=== PATIENT | male | born 1980 | race Caucasian/White ===

== ENCOUNTER 2022-04-22 13:09 | Day surgery (SDC) | payer OTHER, SELFPAY ==
[2022-04-22] VITALS (10 sets, daily range): BP systolic 116–156; BP diastolic 66–92; PULSE 55–72; RESP 14–16; TEMP 36.4–37; O2SAT 100; BMI 27.6
--- NOTE | 2022-04-22 13:14 | PC.NURSE ---
Report to the Outpatient Waiting Room, entrance under the green pavilion located off [facility], at time __1530 on date _04/22/22 . Planned Procedure Time: __1730 . Time changes happen often and if your time is changed the preop area will call you the afternoon before. - You and your visitor will be asked to self-screen and do not enter if you have any COVID symptoms. - Only one visitor is requested with a max of two and NO children visitors are allowed at this time. - The patient visitor may be requested to leave or wait in car when not with patient due to distancing restrictions. - A mask is optional within the hospital. Patients may have clear liquids (water, carbonated beverages, clear teas, apple juice) until 3 hours prior to surgery with a maximum of 20 ounces. - No food from midnight until time of surgery - Infants may have breast milk until 4 hours before surgery, formula 6 hours prior to surgery. - Children will be allowed to drink immediately following surgery. If applicable, please bring a bottle or sippy cup to assist with drinking. Juice, water, soda, and popsicles are readily available. For infants on formula, please bring formula the day of surgery. Pacifiers are allowed. Take the following medications with a SIP of water the morning of surgery: ___NONE Medications to discontinue per physician NONE Date to take last dose Please no make-up, nail korean, hairspray, perfume, deodorant, or body powder the day of surgery. No jewelry (including any body piercings) or valuables the day of surgery, leave them at home. Please take a shower or bath the night before, or the morning of, surgery with an antibacterial soap. Wear comfortable, loose fitting clothing. Children are encouraged to wear pajamas. - Jewelry must be removed prior to entering the operating room. Rings and piercings that are not removed may be cut off. - The hospital will not accept responsibility for valuables. - Please leave all valuables, including medications, at home the day of surgery. If you are going home after surgery, a licensed bus driver supervisor must drive you home. - NO public transportation without another adult if you receive anesthesia. - We recommend that an adult stay with you for 24 hours following discharge. - We also recommend that you do not drive, make important decision, drink alcoholic beverages, or take any drugs that were not prescribed by your health care provider for at least 24 hours after your discharge time. Follow any additional instructions given to you from your surgeon. If you or anyone in your household have experienced Covid symptoms in the past week, please notify your surgeon or the nurse liaison at the phone number below for possible testing. Telephone instructions given to _PATIENT and asked if any additional questions and then verbalized understanding. Patient advised to call surgeon office or pre surgery nurse liaison [phone] if any additional questions.15
[2022-04-22] MEDS: LACTATED RINGERS 1,000 ML 30 ML IV CONT ×2 (15:45→17:55)
--- NOTE | 2022-04-22 16:11 | P.PNAN_ITS ---
Anes - Initial Pre Proc Eval Procedure: Operation Date: 04/22/22 17:30 Proposed Procedures p Incision and Drainage Aileen Rectal Abscess - Bubba Price MD Date/Time: 04/22/22 16:11 Surgeon: Bubba Price MD Pre Op Diagnosis: aileen rectal abscess Patient Data Age: 41 Gender: M Height: 1.88 m Weight: 97.8 kg Last Vital Signs Temp 37.0 C 04/22/22 15:45 Pulse 62 04/22/22 15:45 Resp 16 04/22/22 15:45 BP 152/66 H 04/22/22 15:45 Pulse Ox 100 04/22/22 15:45 O2 Del Method Room Air 04/22/22 15:45 Allergies Allergy/AdvReac Type Severity Reaction Status Date / Time No Known Allergies Allergy Verified 04/22/22 16:02 Home Medications Medication Instructions Recorded Confirmed Type No Home Medications 11/04/20 04/22/22 History Patient hx anesthesia problems: none Family hx anesthesia problems: none Results Review: All pre-operative results and documents have been reviewed as part of the pre-operative evaluation. [facility] Surgical History Surgical History (Updated 11/04/20 @ 16:08 by Kalli Mohan CMA) History of ankle surgery History of appendectomy Family History Family History (Updated 11/04/20 @ 16:09 by Kalli Mhoan CMA) Mother Breast cancer Father Non-Hodgkin lymphoma Social History Social History Smoking packs per day: 0.25 Smoking cigarettes per day: 5.0 Years smoked: 15 Smoking pack-years: 3.75 Smoking status: Current every day smoker Tobacco type: cigarettes Alcohol intake: current Drinks per week: 3 Living arrangements: other Spiritual care concerns: No Anes - Eval Final PreProcedure Day of Procedure 04/22/22 16:11 Patient weight: overweight Heart: regular rate and rhythm Lungs: clear to auscultation Airway: Mallampati scale class II Neurological: alert and oriented Last oral intake: >/= 8 hours (ate breakfast sandwich at 0530 this morning) ASA classification: II Emergent: yes Anesthetic plan: proceed Anesthesia type and monitoring: general ETT and standard monitoring Results Review: All pre-operative results and documents have been reviewed as part of the pre- operative evaluation. Informed Consent: The patient's anesthetic plan and its attendant risks and benefits were discussed with the patient/family/POA. Questions were solicited and answers provided to the satisfaction of the patient/family/POA.
--- NOTE | 2022-04-22 17:00 | WPDHPUPDATE1 ---
History and Physical Update Update Date/Time: 04/22/22 17:00 History and Physical has been reviewed, including an updated exam of the patient. There are NO changes in the patient's condition. Risks, benefits, and alternatives have been discussed and questions answered. Patient agrees to proceed with procedure.
--- NOTE | 2022-04-22 17:02 | PM.IMHP ---
H&P: HPI History of Present Illness Date/Time: 04/22/22 17:02 Chief Complaint: Gluteal pain Narrative: Since last week pain aileen-rectal / gluteal. Started abx. Persistent pain. Aspiration today with purulence. Review of Systems Review of Systems: All systems reviewed & are unremarkable except as noted in HPI and below [facility] Surgical History Surgical History (Updated 11/04/20 @ 16:08 by Kalli Mohan CMA) History of ankle surgery History of appendectomy Family History Family History (Updated 11/04/20 @ 16:09 by Kalli Mohan CMA) Mother Breast cancer Father Non-Hodgkin lymphoma Social History Social History Smoking packs per day: 0.25 Smoking cigarettes per day: 5.0 Years smoked: 15 Smoking pack-years: 3.75 Smoking status: Current every day smoker Tobacco type: cigarettes Alcohol intake: current Drinks per week: 3 Living arrangements: other Spiritual care concerns: No Meds Home Medications and Allergies Home Medications Medication Instructions Recorded Confirmed Type No Home Medications 11/04/20 04/22/22 History Allergies Allergy/AdvReac Type Severity Reaction Status Date / Time No Known Allergies Allergy Verified 04/22/22 16:02 Vital Signs Vital Signs - 24 hr 04/22/22 15:45 Temperature 37.0 C Pulse Rate 62 Respiratory Rate 16 Blood Pressure 152/66 H Pulse Oximetry 100 Oxygen Delivery Room Air Exam Narrative: Perirectal mass / firmness Const: General: cooperative HENMT: Head: normal to inspection Face/Nose/Sinus: Normal external nose present Eyes: General: appearance normal, both eyes and all related structures Neck: Neck: normal visual inspection Chest: Chest palpation & inspection: normal inspection of the chest Resp: Effort & Inspection: normal respiratory effort GI: Inspection: normal to inspection Skin: General skin exam: normal color and no rashes or lesions noted Neuro: General: oriented to person, oriented to place and oriented to time Extrem: General: normal to inspection Psych: Appearance: grossly normal Assessment and Plan Assessment and plan (1) Perirectal abscess: Code(s): K61.1 - Rectal abscess Status: Acute Assessment and Plan: He would like to proceed with I&D Risks, benefits, alternatives were discussed in extensive detail. I want to be very realistic about the risks involved as well as expectations. Reviewed consent in detail. Discussed aftercare and what to monitor for. Made sure I answered all questions answered to satisfaction and consent obtained.
[2022-04-22] MEDS: BUPIVACAINE HCL 0.25% PF 30 ML VIAL 10 ML INFILTRATE (17:25)
--- NOTE | 2022-04-22 17:42 | P.OP_ITS ---
Procedure Note - Detailed Date of Procedure 04/22/22 Pre-op Diagnosis aileen rectal abscess Post-op Diagnosis Same Procedure Performed I&D Perirectal abcess Surgeon Bubba Price MD Anesthesia General Findings Purulence identified at I&D site. Also noted purulent drainage from rectum. Iodoform packing placed. Description of Procedure Preoperatively the risks, benefits, alternatives were discussed in extensive detail. I want him to be very realistic about the risks involved as well as expectations. Made sure I answered all of his questions to his satisfaction. Consent was obtained. He was taken to the operating room. Anesthesia provided by anesthesiology. Placed prone in the operating room table in a alejandra-knife position. He was prepped and draped in a standard sterile fashion. Surgical time-out was taken. 20 cc of 50/50 2% lidocaine and 0.25% Marcaine with epinephrine was used anesthetize locally. The area of greatest fluctuance was identified a 15 blade used to make an incision. I continued dissection until purulence was identifi ed. All of entering the abscess cavity I did note purulent drainage coming from the rectum. I made sure opened the space. I copiously irrigated with saline solution. Verified strict hemostasis. This was packed with half-inch iodoform packing. Dressings were placed. He was woken taken to the PACU without difficulty. All instrument sponge counts were correct at the end of the case. Estimated Blood Loss 2 Drains No Packing Yes (1/2 Iodoform) Pathology Yes (Cultures sent. On batrim at the time.) Complications No immediate complications Condition Stable Disposition PACU
== END 2022-04-22 18:53 | disposition home or self-care (01) ==
PROVIDERS: Visit Provider Surgery Plastic and Reconstructive Surgery
PROC: (CPT 46040; principal; 2022-04-22 17:30)
DX: K61.1 Rectal abscess (principal); F17.210 Nicotine dependence, cigarettes, uncomplicated
CPT/HCPCS: 46040; 87070; 87075; 87077; 87186; 87205; J0330; J0690; J1100; J2405; J2704; J3010; J7120

== ENCOUNTER 2022-05-24 13:04 | Outpatient (NON) | payer OTHER, SELFPAY | END 2022-05-24 13:05 | disposition home or self-care (01) | PROVIDERS: Visit Provider Nurse Practitioner | DX: D49.2 Neoplasm of unspecified behavior of bone, soft tissue, and skin (principal) | CPT/HCPCS: 88305 ==

== ENCOUNTER 2022-07-02 02:33 | Day surgery (SDC) | payer OTHER, SELFPAY ==
[2022-06-24 11:30] VITALS: BMI 27.6
--- NOTE | 2022-06-24 11:30 | PC.NURSE ---
Report to the Outpatient Waiting Room, entrance under the green pavilion located off [facility], at time 0800 on date 07/02/22. Planned Procedure Time: 1000. Time changes happen often and if your time is changed the preop area will call you the afternoon before. - You and your visitor will be asked to self-screen and do not enter if you have any COVID symptoms. - Only one visitor is requested with a max of two and NO children visitors are allowed at this time. - The patient visitor may be requested to leave or wait in car when not with patient due to distancing restrictions. - A mask is optional within the hospital at this time. Patients may have clear liquids (water, carbonated beverages, clear teas, apple juice) until 3 hours prior to surgery with a maximum of 20 ounces. - No food from midnight until time of surgery Take the following medications with a SIP of water the morning of surgery: N/A DO NOT STOP ANY OF YOUR OTHER PRESCRIPTION MEDICATIONS PRIOR TO SURGERY EXCEPT THE FOLLOWING Medications to discontinue per physician: N/A Date to take last dose: N/A Please no make-up, nail jamaican, hairspray, perfume, deodorant, or body powder the day of surgery. No jewelry (including any body piercings) or valuables the day of surgery, leave them at home. Please take a shower or bath the night before, or the morning of, surgery with an antibacterial soap. Wear comfortable, loose fitting clothing. - Jewelry must be removed prior to entering the operating room. Rings and piercings that are not removed may be cut off. - The hospital will not accept responsibility for valuables. - Please leave all valuables, including medications, at home the day of surgery. If you are going home after surgery, a licensed spike driver must drive you home. - NO public transportation without another adult if you receive anesthesia. - We recommend that an adult stay with you for 24 hours following discharge. - We also recommend that you do not drive, make important decision, drink alcoholic beverages, or take any drugs that were not prescribed by your health care provider for at least 24 hours after your discharge time. Follow any additional instructions given to you from your surgeon. If you or anyone in your household have experienced Covid symptoms in the past week, please notify your surgeon or the nurse liaison at the phone number below for possible testing. Telephone instructions given to PT - TINA RYAN and asked if any additional questions and then verbalized understanding. Patient advised to call surgeon office or pre surgery nurse liaison [phone] if any additional questions.
[2022-07-02] VITALS (8 sets, daily range): BP systolic 97–135; BP diastolic 67–88; PULSE 47–62; RESP 13–20; TEMP 36.7–37.3; O2SAT 98–100
--- NOTE | 2022-07-02 12:37 | WPDHPUPDATE1 ---
History and Physical Update Update Date/Time: 07/02/22 12:37 History and Physical has been reviewed, including an updated exam of the patient. There are NO changes in the patient's condition. Risks, benefits, and alternatives have been discussed and questions answered. Patient agrees to proceed with procedure.
[2022-07-02] MEDS: LACTATED RINGERS 1,000 ML 30 ML IV CONT (13:00)
[2022-07-02] MEDS: KETOROLAC 15 MG/ML VIAL (*BKC) IV PUSH (13:15)
[2022-07-02] MEDS: ACETAMINOPHEN 500 MG TABLET 1000 MG PO (13:15)
--- NOTE | 2022-07-02 13:22 | P.PNAN_ITS ---
Anes - Initial Pre Proc Eval Procedure: Operation Date: 07/02/22 14:00 Proposed Procedures p Rectal Examination Under Anesthesia for Anal Fistulotomy - Francisco Kidd DO Date/Time: 07/02/22 13:22 Surgeon: Francisco Kidd DO Pre Op Diagnosis: anal fistula Patient Data Age: 41 Gender: M Height: 1.88 m Weight: 96.9 kg Last Vital Signs Temp 99.1 F 07/02/22 12:50 Pulse 60 07/02/22 12:50 Resp 20 07/02/22 12:50 BP 135/78 07/02/22 12:50 Pulse Ox 100 07/02/22 12:50 O2 Del Method Room Air 07/02/22 12:50 Allergies Allergy/AdvReac Type Severity Reaction Status Date / Time No Known Allergies Allergy Verified 07/02/22 13:08 Home Medications Medication Instructions Recorded Confirmed Type No Home Medications 11/04/20 07/02/22 History Patient hx anesthesia problems: none Family hx anesthesia problems: none Results Review: All pre-operative results and documents have been reviewed as part of the pre- operative evaluation. [facility] Surgical History Surgical History History of ankle surgery History of appendectomy Family History Family History Mother Breast cancer Father Non-Hodgkin lymphoma Social History Social History Smoking packs per day: 0.25 Smoking cigarettes per day: 5.0 Years smoked: 15 Smoking pack-years: 3.75 Smoking status: Current every day smoker Tobacco type: cigarettes Alcohol intake: current Drinks per week: 3 Substance use: never Substance use type: does not use Living arrangements: with family Spiritual care concerns: No Anes - Eval Final PreProcedure Day of Procedure 07/02/22 13:22 Patient weight: overweight Heart: regular rate and rhythm Lungs: clear to auscultation Airway: Mallampati scale class II Neurological: alert and oriented Last oral intake: >/= 8 hours ASA classification: II Emergent: no Anesthetic plan: proceed Anesthesia type and monitoring: general LMA and ETT and standard monitoring Results Review: All pre-operative results and documents have been reviewed as part of the pre- operative evaluation. Informed Consent: The patient's anesthetic plan and its attendant risks and benefits were discussed with the patient/family/POA. Questions were solicited and answers provided to the satisfaction of the patient/family/POA.
[2022-07-02] MEDS: ceFAZolin 2 GM/D5W 50 ML 2 GM/50 ML BAG IVPB (13:39)
--- NOTE | 2022-07-02 14:36 | W.PM.PROC2 ---
Procedure Note - Detailed Date of Procedure 07/02/22 Pre-op Diagnosis anal fistula Post-op Diagnosis Same Procedure Performed 1. rectal exam under anesthesia 2. Placement of draining seton Surgeon Francisco Kidd, DO Anesthesia General and Local ( Exparel) Indications This is a 41-year-old man who presented with a prior history of perirectal abscess that was incised and drained 2 months ago. He never completely healed at the I and D site and would periodically have some purulence drainage. He was found to have a right anterior wound in the perianal skin that appeared to be consistent with an anal fistula. Discussions were made with the patient about treatment options and decision was made to proceed with rectal exam under anesthesia with possible anal fistulotomy. Findings Rectal exam under anesthesia was performed. The patient had a right anterior perianal wound that had some surrounding induration extending towards the midline perineum. Lacrimal probes were used to probe the wound and identify where the internal anal opening was. I also injected hydrogen peroxide to help identify the internal opening. There appeared to be a deep anterior midline internal fistula opening within the anal canal. This appeared to encompass a significant amount of sphincter muscle fibers. This appeared to be to perform fistulotomy without causing incontinence. Decision was made to advance a vessel loop through the fistula opening to perform a draining seton. No specimens were obtained for pathology. Description of Procedure Procedure as well as risks, benefits, and alternatives were discussed with the patient. Consent was obtained placed in chart prior to procedure. Patient was brought back to surgical suite. He was placed supine on operating table. Time-out was done to confirm patient and procedure. He was then intubated by the anesthesia department. He was then repositioned into dorsal lithotomy position in [facility]. His perirectal area was prepped and draped in sterile fashion using Betadine prep. Digital rectal exam was initially performed. A Hill-Richard anoscope was then inserted and the anal rectal canal was carefully inspected. There did appear to be scant purulence drainage the anterior midline region. I then used a lacrimal probe to probe the right anterior perianal skin opening and this advanced deep within the perianal tissue. I did make a small incision at the external skin opening with a 15 blade scalpel to better identify the fistula tract. Initially this appeared to be advancing somewhat towards the anterior midline but it was difficult to identify the tract. Hydrogen peroxide was injected within this area from the external skin opening and I was able to easily identify hydrogen peroxide draining from the anterior midline internal opening. Was then able to advance the lacrimal probe further and identified the internal opening. This appeared to be transsphincteric and I did not want to risk cutting through the sphincter muscle. Chose to place a seton drain through the fistula opening. An 0 silk suture was tied around the end of the lacrimal probe and then this was pulled through the fistula opening. Then tied a vessel loop on the other end of the 0 silk and then pulled the vessel loop through the fistula tract. The vessel loop was secured in place using 0 silk ties. Exparel was infiltrated locally around the perianal skin. One final inspection was made around the anal rectal canal and no other abnormalities were noted. Fluff gauze, ABD pad, and mesh underwear were applied. The patient was then awakened from anesthesia, extubated, transferred to recovery. Estimated Blood Loss -5.0 Complications No immediate complications Condition Stable Disposition Same day [facility] Billing Surgery - Charge Forward: Surgery Billing
--- NOTE | 2022-07-02 14:51 | SUR.PHASEI ---
1450: Simple mask removed.
== END 2022-07-02 15:54 | disposition home or self-care (01) ==
PROVIDERS: Visit Provider Surgery
PROC: (CPT 46020; principal; 2022-07-02 14:00)
DX: K60.3 Anal fistula (principal); F17.210 Nicotine dependence, cigarettes, uncomplicated
CPT/HCPCS: 46020; A9270; C9290; J0690; J1100; J1885; J2250; J2405; J2704; J3010; J7120

== ENCOUNTER 2023-08-31 17:15 | Outpatient (NON) | payer OTHER, SELFPAY | END 2023-08-31 17:16 | disposition home or self-care (01) | PROVIDERS: Visit Provider Physician Assistant Surgical | DX: L02.512 Cutaneous abscess of left hand (principal) | CPT/HCPCS: 87070; 87075; 87076; 87205; 88300; 88302 ==